=== PATIENT | female | born 1940 | race Caucasian/White ===

== ENCOUNTER 2016-07-23 16:46 | Outpatient (CLI) ==
[2015-09-17 20:38] VITALS: BMI 23.6
== END 2016-07-23 16:47 | disposition home or self-care (01) ==
LOC: AMBL 16:46
PROVIDERS: ATTEND Internal Medicine
DX: R53.1 Weakness (principal); R68.89 Other general symptoms and signs; R50.9 Fever, unspecified; I73.9 Peripheral vascular disease, unspecified; R11.0 Nausea

== ENCOUNTER 2016-07-26 13:20 | Outpatient (CLI) ==
[2015-09-17 20:38] VITALS: BMI 23.6
== END 2016-07-26 13:21 | disposition home or self-care (01) ==
LOC: AMBL 13:20
PROVIDERS: ATTEND Internal Medicine Geriatric Medicine
DX: R11.2 Nausea with vomiting, unspecified (principal); R53.1 Weakness; N15.9 Renal tubulo-interstitial disease, unspecified

== ENCOUNTER 2017-06-26 07:16 | Outpatient (CLI) ==
[2015-09-17 20:38] VITALS: BMI 23.6
== END 2017-06-26 07:17 | disposition short-term general hospital (02) ==
LOC: AMBL 07:16
PROVIDERS: ATTEND Internal Medicine
DX: R07.9 Chest pain, unspecified (principal); R06.02 Shortness of breath; I25.2 Old myocardial infarction; Z95.1 Presence of aortocoronary bypass graft; Z95.5 Presence of coronary angioplasty implant and graft

== ENCOUNTER 2017-09-16 13:31 | Outpatient (RCR) ==
[2017-09-16 14:08] VITALS: BP 128/52; TEMP 98.9; BMI 25.7
== END 2017-09-26 23:59 ==
LOC: CAR.REHAB 13:31 → EDSTATUS 13:36
PROVIDERS: ATTEND Internal Medicine Cardiovascular Disease
DX: I21.11 ST elevation (STEMI) myocardial infarction involving right coronary artery (principal)

== ENCOUNTER 2017-09-28 07:00 | Outpatient (RCR) | payer OTHER | END 2017-10-13 13:22 | disposition home or self-care (01) | LOC: CAR.REHAB 07:00 | PROVIDERS: ATTEND Internal Medicine Cardiovascular Disease | DX: I21.11 ST elevation (STEMI) myocardial infarction involving right coronary artery (principal) ==

== ENCOUNTER 2018-08-27 12:23 | Outpatient (RCR) | payer OTHER ==
[2018-08-27 13:34] VITALS: BP 112/54; TEMP 208.9; BMI 26.2
== END 2018-08-27 23:59 ==
LOC: CAR.REHAB 12:23 → EDSTATUS 12:24
PROVIDERS: ATTEND Internal Medicine
DX: R07.9 Chest pain, unspecified (principal); I25.10 Atherosclerotic heart disease of native coronary artery without angina pectoris; Z95.5 Presence of coronary angioplasty implant and graft

== ENCOUNTER 2018-10-28 08:00 | Outpatient (RCR) | payer OTHER ==
[2018-11-17 09:41] VITALS: BP 138/58
== END 2018-11-27 23:59 ==
LOC: CAR.REHAB 08:00
PROVIDERS: ATTEND Internal Medicine
DX: R07.9 Chest pain, unspecified (principal); Z95.5 Presence of coronary angioplasty implant and graft
CPT/HCPCS: 93798